=== PATIENT | male | born 1985 | race Caucasian/White ===

== ENCOUNTER → 2016-10-20 | Emergency (ER) | payer SELFPAY ==
[~2016-10-20] MED LIST: LIDO 2%/EPI 1:200000 PRESRVFRE (20 ML SDVIAL) INF ONE
[2016-10-20 00:39] VITALS: BP 130/82; PULSE 58; TEMP 98.3; BMI 22.8
--- NOTE | 2016-10-20 00:45 | PDOC ---
History of Present Illness - General Chief Complaint: Laceration Stated Complaint: HEAD INJURY Time Seen by Provider: 10/20/16 00:35 History Source: Patient Exam Limitations: No Limitations - History of Present Illness Timing/Duration: reports: 1/2 hour Associated Symptoms: reports: denies symptoms Past History - Past Medical History Allergies/Adverse Reactions: Allergies Allergy/AdvReac Type Severity Reaction Status Date / Time No Known Allergies Allergy Verified 10/20/16 00:23 Home Medications: Ambulatory Orders NK [No Known Home Medication] 10/20/16 Other medical history: Pt denies - Psycho/Social/Smoking Cessation Hx Suicidal Ideation: No Smoking History: Current some day smoker Number of Cigarettes Smoked Daily: 4 Information on smoking cessation initiated: No Hx Alcohol Use: No Drug/Substance Use Hx: No Substance Use Type: None Review of Systems - Review of Systems Able to Perform ROS?: Yes Comments:: 10/20/16 00:40 CONSTITUTIONAL: Absent: fever, chills, diaphoresis, generalized weakness, malaise, loss of appetite HEENT: Absent: rhinorrhea, nasal congestion, throat pain, throat swelling, difficulty swallowing, mouth swelling, ear pain, eye pain, visual Changes CARDIOVASCULAR: Absent: chest pain, loss of consciousness, palpitations, irregular heart rate, peripheral edema RESPIRATORY: Absent: cough, shortness of breath, dyspnea with exertion, orthopnea, wheezing, stridor, hemoptysis MUSCULOSKELETAL: Absent: myalgia, arthralgia, joint swelling SKIN: Absent: rash, itching, pallor HEMATOLOGIC/IMMUNOLOGIC: Absent: easy bleeding, easy bruising, lymphadenopathy, frequent infections NEUROLOGIC: 3cm vertical right mid eyebrow Absent: headache, focal weakness or paresthesias, dizziness, unsteady gait, seizure, mental status changes, bladder or bowel incontinence PSYCHIATRIC: Absent: anxiety, depression, suicidal or homicidal ideation, hallucinations. Is the patient limited Croatian proficient: No *Physical Exam - Vital Signs Last Vital Signs Temp Pulse Resp BP Pulse Ox 98.3 F 58 L 20 130/82 100 10/20/16 00:24 10/20/16 00:24 10/20/16 00:24 10/20/16 00:24 10/20/16 00:24 - Physical Exam Comments: 10/20/16 00:40 GENERAL: Well developed, well nourished. Awake and alert. No acute distress. HEENT: Normocephalic, atraumatic. PERRLA, EOMI. No conjunctival pallor. Sclera are non- icteric. Moist mucous membranes. Oropharynx is clear. NECK: Supple. Full ROM. No JVD. Carotid pulses 2+ and symmetric, without bruits. No thyromegaly. No lymphadenopathy. CARDIOVASCULAR: Regular rate and rhythm. No murmurs, rubs, or gallops. Distal pulses are 2+ and symmetric. PULMONARY: No evidence of respiratory distress. Lungs clear to auscultation bilaterally. No wheezing, rales or rhonchi. ABDOMINAL: Soft. Non-tender. Non-distended. No rebound or guarding. No organomegaly. Normoactive bowel sounds. MUSCULOSKELETAL Normal range of motion at all joints. No bony deformities or tenderness. No CVA tenderness. EXTREMITIES: No cyanosis. No clubbing. No edema. No calf tenderness. SKIN: Warm and dry. Normal capillary refill. No rashes. No jaundice. NEUROLOGICAL: Alert, awake, appropriate. Cranial nerves 2-12 intact. No deficits to light touch and temperature in face, upper extremities and lower extremities. No motor deficits in the in face, upper extremities and lower extremities. Normoreflexic in the upper and lower extremities. Normal speech. Toes are down- going bilaterally. Gait is normal without ataxia. PSYCHIATRIC: Cooperative. Good eye contact. Appropriate mood and affect. Right mid eyebrow *DC/Admit/Observation/Transfer Diagnosis at time of Disposition: Eyebrow laceration Qualifiers: Encounter type: initial encounter Laterality: right Qualified Code(s): S01.111A - Laceration without foreign body of right eyelid and periocular area, initial encounter - Discharge Dispostion Disposition: HOME Condition at time of disposition: Stable Admit: No - Patient Instructions Printed Discharge Instructions: DI for Laceration Repair Additional Instructions: Keep the incision clean and dry for 24 hours. After 24 hours, you may allow the soap and water to rinse off your incision. Avoid direct pressure of the water to the incision. Pat the incision dry with a clean clothe. Apply a small amount of bacitracin onto the incision. Cover the incision loosely with a bandaid. Take tylenol/motrin as needed for pain. Follow up with your physician or the ER in 48 hours for a wound check. Return to the ER if you notice red streaks, increase redness/swelling/severe pain to the incision. Suture removal in 6 days.
== END | disposition home or self-care (01) ==
LOC: JER 00:04
CPT/HCPCS: 99282-25

== ENCOUNTER 2016-10-25 18:03 | Emergency (ER) | payer SELFPAY ==
[2016-10-25 19:08] VITALS: BP 115/63; PULSE 55; TEMP 98.6; BMI 21.2
--- NOTE | 2016-10-25 19:12 | PDOC ---
Suture Removal/Wound Check HPI - History of Present Illness Chief Complaint: Suture/Staple Removal(Here) Stated Complaint: STICHES REMOVAL Time Seen by Provider: 10/25/16 18:56 History Source: Yes: Patient Exam Limitations: Yes: No Limitations [facility] ED Treatment Type of procedure performed on last visit: Yes: Laceration Repair Tetanus Immunization: Yes: Up to Date Past History - Travel Traveled outside of the country in the last 30 days: No Close contact w/someone who was outside of country & ill: No - Past Medical History Allergies/Adverse Reactions: Allergies No Known Allergies Allergy (Verified 10/25/16 18:48) Home Medications: Ambulatory Orders NK [No Known Home Medication] 10/20/16 General: Yes: no pertinent history - Immunization History Immunizations Up to Date: Yes - Social History Smoking Status: Never smoked Number of Ciarettes Per Day: 4 Suture Removal/Wound Check PE - Physical Exam Laceration/Wound Check Symptoms: reports: None Current Severity Level: None Maximum Severity Level: None Pain Localization: None Location of Laceration/Wound: right: Face (brow- approximated, no redness swelling or evidence of cellulitis. 7 sutures intact. Healing ecchymoses to orbit) *Review of Systems - Review of Systems Able to Perform ROS?: Yes Constitutional: Yes: See HPI. No: Symptoms Reported, Fever, Malaise HEENTM: Yes: Symptoms Reported, See HPI Medical Decision Making - Medical Decision Making 10/25/16 19:11 7 sutures removed without incident, wound approximated well *DC/Admit/Observation/Transfer Diagnosis at time of Disposition: Encounter for removal of sutures - Discharge Dispostion Disposition: HOME Condition at time of disposition: Stable Admit: No - Patient Instructions Printed Discharge Instructions: DI for Suture Removal
== END 2016-10-25 19:13 | disposition home or self-care (01) ==
LOC: JERFT 18:03
DX: Z48.02 Encounter for removal of sutures (principal)
CPT/HCPCS: 99281-25

== ENCOUNTER 2018-05-09 08:54 | Emergency (ER) | payer OTHER ==
[2018-05-09 09:20] VITALS: BP 126/77; TEMP 98; BMI 23.3
[2018-05-09 09:29] VITALS: PULSE 60
--- NOTE | 2018-05-09 09:30 | PDOC ---
History of Present Illness - General Chief Complaint: Pain Stated Complaint: RT ABD PAIN Time Seen by Provider: 05/09/18 09:25 History Source: Patient Exam Limitations: No Limitations - History of Present Illness Initial Comments: 05/09/18 10:46 patient is a 33-year-old male no past medical history who presents to the ER today for right-sided pain. Patient points to his right flank/back as to the source of the pain. He states that he has had this pain intermittently for 3 years; but it has been worse within the last week. Patient states that the pain is worse with movement. Patient works as a sprinkling system installer. He states that he has been working more hours than usual recently. Past History - Travel Traveled outside of the country in the last 30 days: No Close contact w/someone who was outside of country & ill: No - Past Medical History Allergies/Adverse Reactions: Allergies Allergy/AdvReac Type Severity Reaction Status Date / Time No Known Allergies Allergy Verified 05/09/18 09:25 Home Medications: Ambulatory Orders Cyclobenzaprine HCl [Flexeril -] 10 mg PO HS #10 tablet 05/09/18 Ibuprofen 600 mg PO Q6H #30 tablet 05/09/18 COPD: No - Immunization History Immunization Up to Date: Yes - Suicide/Smoking/Psychosocial Hx Smoking History: Never smoked Have you smoked in the past 12 months: No Number of Cigarettes Smoked Daily: 4 Information on smoking cessation initiated: No Hx Alcohol Use: No (past stopped 2yrs agpo) Drug/Substance Use Hx: No Substance Use Type: None Review of Systems - Review of Systems Able to Perform ROS?: Yes Comments:: 05/09/18 09:48 CONSTITUTIONAL: Absent: fever, chills, diaphoresis, generalized weakness, malaise, loss of appetite HEENT: Absent: rhinorrhea, nasal congestion, throat pain, throat swelling, difficulty swallowing, mouth swelling, ear pain, eye pain, visual Changes CARDIOVASCULAR: Absent: chest pain, loss of consciousness, palpitations, irregular heart rate, peripheral edema RESPIRATORY: Absent: cough, shortness of breath, dyspnea with exertion, orthopnea, wheezing, stridor, hemoptysis GASTROINTESTINAL: Absent: abdominal pain, abdominal distension, nausea, vomiting, diarrhea, constipation, melena, hematochezia GENITOURINARY: Absent: dysuria, frequency, urgency, hesitancy, hematuria, flank pain, genital pain MUSCULOSKELETAL: Present: R sided rib pain Absent: joint swelling SKIN: Absent: rash, itching, pallor HEMATOLOGIC/IMMUNOLOGIC: Absent: easy bleeding, easy bruising, lymphadenopathy, frequent infections ENDOCRINE: Absent: unexplained weight gain, unexplained weight loss, heat intolerance, cold intolerance NEUROLOGIC: Absent: headache, focal weakness or paresthesias, dizziness, unsteady gait, seizure, mental status changes, bladder or bowel incontinence PSYCHIATRIC: Absent: anxiety, depression, suicidal or homicidal ideation, hallucinations. Is the patient limited Maori proficient: No *Physical Exam - Vital Signs Last Vital Signs Temp Pulse Resp BP Pulse Ox 98 F 60 18 126/77 100 05/09/18 09:17 05/09/18 09:17 05/09/18 09:17 05/09/18 09:17 05/09/18 09:17 - Physical Exam Comments: 05/09/18 10:39 GENERAL: Well developed, well nourished. Awake and alert. No acute distress. CARDIOVASCULAR: Regular rate and rhythm. No murmurs, rubs, or gallops. Distal pulses are 2+ and symmetric. PULMONARY: No evidence of respiratory distress. Lungs clear to auscultation bilaterally. No wheezing, rales or rhonchi. ABDOMINAL: Soft. Non-tender. Non-distended. No rebound or guarding. No organomegaly. Normoactive bowel sounds. MUSCULOSKELETAL TTP of the R lateral latissismus dorsi. Reproducible pain with movement. Normal range of motion at all joints. No bony deformities or tenderness. No CVA tenderness. EXTREMITIES: No cyanosis. No clubbing. No edema. No calf tenderness. SKIN: Warm and dry. Normal capillary refill. No rashes. No jaundice. NEUROLOGICAL: Alert, awake, appropriate. Cranial nerves 2-12 intact. No deficits to light touch and temperature in face, upper extremities and lower extremities. No motor deficits in the in face, upper extremities and lower extremities. Normoreflexic in the upper and lower extremities. Normal speech. Toes are down- going bilaterally. Gait is normal without ataxia. PSYCHIATRIC: Cooperative. Good eye contact. Appropriate mood and affect. Moderate Sedation - Procedure Monitoring Vital Signs: Procedure Monitoring Vital Signs Temperature 98 F 05/09/18 09:17 Pulse Rate 60 05/09/18 09:17 Respiratory Rate 18 05/09/18 09:17 Blood Pressure 126/77 05/09/18 09:17 O2 Sat by Pulse Oximetry (%) 100 05/09/18 09:17 Medical Decision Making - Medical Decision Making 05/09/18 10:47 patient is a 33-year-old male no past medical history who presents to the ER for 3 years of right mid back/flank pain. On exam no CVA tenderness,no abdominal pain. Belly is soft and nontender, with no rebound or tenderness. negative Meek's sign. reproducible pain to the right latissimus dorsi laterally. Pain is also worse with movement. Most likely a muscle strain given that patient has been working more than usual. Patient does not have a primary care doctor. We will give primary care to follow up with this patient has not seen a doctor in over 2 years. Discharge home I discussed the physical exam findings, ancillary test results and final diagnoses with the patient. I answered all of the patient's questions. The patient was satisfied with the care received and felt comfortable with the discharge plan and treatment plan. The Patient agrees to follow up with the primary care physician/specialist within 24-72 hours. Return precautions were given. *DC/Admit/Observation/Transfer Diagnosis at time of Disposition: Strain of latissimus dorsi muscle Qualifiers: Encounter type: initial encounter Qualified Code(s): S29.012A - Strain of muscle and tendon of back wall of thorax, initial encounter - Discharge Dispostion Disposition: HOME Condition at time of disposition: Stable Decision to Admit order: No - Prescriptions Prescriptions: Cyclobenzaprine HCl [Flexeril -] 10 mg PO HS #10 tablet Ibuprofen 600 mg PO Q6H #30 tablet - Referrals Referrals: Jesus Willingham MD [Staff Physician] - - Patient Instructions Printed Discharge Instructions: DI for Muscle Strain Additional Instructions: You have a muscle strain on your right side. Please take Motrin 600 mg every 6 hours until your symptoms resolved. Take this medication with food. You may take the Flexeril at night before bed. Do not drink or drive after taking this medication as it may make you sleepy. Please follow-up with primary care next week. A referral has been provided for you. Return to the ER for any new or worsening symptoms. Tienes pepe tensin muscular en el lado derecho. Por favor tome Motrin 600 mg cada 6 horas hasta que los sntomas se resuelvan. [place] daquan medicamento con comida. Puede chelsie el Flexeril por la noche antes de acostarse. No irena ni maneje despus de chelsie daquan medicamento ya que puede causarlo sueo. Por favor, seguimiento con atencin primaria la prxima semana. Se le snyder proporcionado pepe remisin. Regrese a la ER para cualquier sntoma nuevo o que empeore. - Post Discharge Activity
[2018-05-09] MEDS ORDERED: LIDOCAINE 5% TOPICAL PATCH TP ONE (09:43)
[2018-05-09] MEDS ORDERED: IBUPROFEN 400 MG TABLET (FP) PO ONE ×2 (09:43→10:04)
[2018-05-09] MEDS ORDERED: LIDOCAINE 5% TOPICAL PATCH ONE (10:04)
[2018-05-09] MEDS ORDERED: LIDOCAINE PATCH REMOVAL MC SCH (22:00)
== END 2018-05-09 10:42 | disposition home or self-care (01) ==
LOC: JERFT 08:54
DX: S29.012A Strain of muscle and tendon of back wall of thorax, initial encounter (principal); X50.0XXA Overexertion from strenuous movement or load, initial encounter; X50.9XXA Other and unspecified overexertion or strenuous movements or postures, initial encounter; Y93.89 Activity, other specified; Y92.89 Other specified places as the place of occurrence of the external cause; Y99.8 Other external cause status
CPT/HCPCS: 99281-25

== ENCOUNTER 2018-11-24 18:33 | Emergency (ER) | payer OTHER | END 2018-11-24 21:34 | disposition home or self-care (01) | LOC: JERFT 18:33 ==

== ENCOUNTER 2021-08-18 22:01 | Emergency (ER) | payer OTHER ==
[2021-08-18 22:11] VITALS: BP 122/66; BMI 23.3
[2021-08-18] MEDS ORDERED: KETOROLAC TROMETHAMINE 15 MG/ML VIAL IVPUSH ONE (23:24)
[2021-08-18] MEDS ORDERED: DEXAMETHASONE SOD PHOSPHATE 10 MG/1 ML VIAL IVPUSH ONE (23:24)
[2021-08-18] MEDS ORDERED: KETOROLAC TROMETHAMINE 15 MG/ML VIAL ONE (23:36)
[2021-08-18] MEDS ORDERED: DEXAMETHASONE SOD PHOSPHATE 10 MG/1 ML VIAL ONE (23:36)
[2021-08-19 00:18] LABS: BASO % 0.5 % (0-2.0); EOS % 0.5 % (0-4.5); HEMATOCRIT 43.1 % (35.4-49); HEMOGLOBIN 14.8 GM/dL (11.7-16.9); LYMPH % 13.6 % (8-40); MCH 29.7 pg (25.7-33.7); MCHC 34.5 g/dl (32.0-35.9); MEAN CELL VOLUME 86.1 fl (80-96); MEAN PLT VOLUME 10.3 fl (7.5-11.1); MONO % 8.5 % (3.8-10.2); NEUT % 76.9 % (42.8-82.8); PLATELET COUNT 161 10^3/uL (134-434); RDW 13.4 % (11.9-15.9); WHITE BLOOD COUNT 9.9 K/mm3 (4.0-10.0)
[2021-08-19 00:20] LABS: ALBUMIN 3.9 g/dl (3.4-5.0); CALCIUM 9.2 mg/dL (8.5-10.1)
[2021-08-19 00:21] LABS: BLOOD UREA NITROGEN 20.6 mg/dL (7-18)
[2021-08-19 00:23] LABS: THROAT:GRP A STREP NOT DETECTED (NOTDETECTED)
[2021-08-19 00:25] LABS: BILIRUBIN,TOTAL 0.6 mg/dL (0.2-1); TOT PROT 7.7 g/dl (6.4-8.2)
[2021-08-19] MEDS ORDERED: AMOXICILLIN 500 MG CAPSULE (FP) PO ONE (01:01)
[2021-08-19] MEDS ORDERED: AMOXICILLIN 500 MG CAPSULE (FP) ONE (01:12)
[2021-08-19 01:40] VITALS: PULSE 80; TEMP 97.9
== END 2021-08-19 01:40 | disposition home or self-care (01) ==
LOC: JER 22:01
PROC: 3E033GC Introduction of Other Therapeutic Substance into Peripheral Vein, Percutaneous Approach (ICD-10-PCS; principal; 2021-08-18)
PROC: 3E0333Z Introduction of Anti-inflammatory into Peripheral Vein, Percutaneous Approach (ICD-10-PCS; 2021-08-18)
DX: K04.7 Periapical abscess without sinus (principal)
CPT/HCPCS: 0241U-QW; 36415; 70360-TC-FY; 80053; 85025; 87651; 99284-25; J1100

== ENCOUNTER 2024-11-09 00:54 | Emergency (ER) | payer OTHER ==
[2024-11-09 01:01] VITALS: BP 146/97; PULSE 58; RESP 14; TEMP 98.3; BMI 23.2
[2024-11-09] MEDS ORDERED: KETOROLAC TROMETHAMINE 30 MG/1 ML VIAL ONE (01:23)
[2024-11-09] MEDS ORDERED: ACETAMINOPHEN 500 MG TABLET (FP) ONE (01:27)
[2024-11-09] MEDS: ACETAMINOPHEN 500 MG TABLET (FP) PO ONE (01:40)
[2024-11-09] MEDS: KETOROLAC TROMETHAMINE 30 MG/1 ML VIAL IM ONE (01:40)
== END 2024-11-09 02:00 | disposition home or self-care (01) ==
LOC: JER 00:54
PROC: 3E0233Z Introduction of Anti-inflammatory into Muscle, Percutaneous Approach (ICD-10-PCS; principal; 2024-11-09)
DX: S39.011A Strain of muscle, fascia and tendon of abdomen, initial encounter (principal); X50.0XXA Overexertion from strenuous movement or load, initial encounter; Y99.0 Civilian activity done for income or pay
CPT/HCPCS: 99284-25